=== PATIENT | male | born 1995 | race American Indian/Alaskan Native ===

== ENCOUNTER 2020-10-18 13:46 | Emergency (ER) | payer SELFPAY ==
[2020-10-18 13:58] VITALS: BP 122/85
--- NOTE | 2020-10-18 14:04 | Event Note ---
ED Screening Note Date of service: 10/18/20 Time: 14:02 ED Screening Note: Pt complains of abdominal cramping with defecation and urination along with hematuria x 2 days denies penile discharge or scrotal/penile pain/swelling This initial assessment/diagnostic orders/clinical plan/treatment(s) is/are subject to change based on patients health status, clinical progression and re- assessment by fellow clinical providers in the ED. Further treatment and workup at subsequent clinical providers discretion. Patient/guardian urged not to elope from the ED as their condition may be serious if not clinically assessed and managed. Initial orders include: UA KUB
--- NOTE | 2020-10-18 15:03 | XRay Report ---
ABDOMEN 1 VIEW(S) INDICATION / CLINICAL INFORMATION: abdominal cramping, worse with defecatio. COMPARISON: None available. FINDINGS: TUBES / LINES: None. BOWEL GAS PATTERN: No significant abnormality. ADDITIONAL FINDINGS: No significant additional findings. IMPRESSION: No acute abnormality. Signer Name: Shaw Franklin MD Signed: 10/18/2020 2:58 PM Workstation Name: [id number]
[2020-10-18 16:18] LABS: Bacteria,Urine 1+ /HPF (Negative); Bilirubin,Urine NEG (Negative); Blood,Urine NEG (Negative); Color,Urine Yellow (Yellow); Mucus,Urine FEW /HPF; Protein,Urine <15 mg/dL mg/dL (Negative); Urobilinogen,Urine < 2.0 mg/dL (<2.0)
== END 2020-10-18 15:58 ==
LOC: ED 13:46
DX: R10.9 Unspecified abdominal pain (principal); Z53.21 Procedure and treatment not carried out due to patient leaving prior to being seen by health care provider
CPT/HCPCS: 74018; 81001; 87086